=== PATIENT | male | born 1980 | race African-American/Black ===

== ENCOUNTER → 2021-09-06 | Outpatient (CLI) | payer MEDICAID ==
[2021-09-06 10:45] LABS: Basophils # (auto) 0.1 10 ^3/uL (0-0.2); Basophils % (auto) 1.2 % (0.0-2.0); Eosinophils # (auto) 0.3 10 ^3/uL (0-0.8); Eosinophils % (auto) 4.5 % (0.0-7.0); Hematocrit 41.5 % (41.0-53.0); Hemoglobin 14.3 g/dL (13.5-17.5); Lymphocytes # (auto) 1.7 10 ^3/uL (0.4-5.4); Lymphocytes % (auto) 27.2 % (10.0-50.0); Mean Corpuscular Hgb Conc. 34.6 g/dL (32.0-36.0); Mean Corpuscular Volume 92.7 fL (80.0-100.0); Monocytes # (auto) 0.4 10 ^3/uL (0-1.3); Monocytes % (auto) 6.7 % (0.0-12.0); Neutrophils # (auto) 3.7 10 ^3/uL (1.6-8.6); Neutrophils % (auto) 60.4 % (37.0-80.0); Red Blood Cells 4.48 10^6/uL (4.5-5.90); Red Cell Distribution Width 12.5 % (11.8-14.3); White Blood Cell 6.1 10^3/uL (4.4-10.8)
[2021-09-06 11:36] LABS: Albumin 3.8 g/dL (3.4-5.0); BUN/Creatinine Ratio 10.3; Calcium 9.7 mg/dL (8.5-10.1); Potassium 4.3 mmol/L (3.5-5.1)
[2021-09-06 11:48] LABS: Bilirubin, Total 0.5 mg/dL (0.2-1.0); Total Protein 7.2 g/dL (6.4-8.2)
[2021-09-06 12:00] LABS: Urine Blood TRACE /uL (Negative); Urine Specific Gravity 1.009 (1.001-1.035)
[2021-09-06 12:51] LABS: Micro Albumin < 5.00 mg/L (0-30.0)
== END | disposition home or self-care (01) ==
LOC: LAB 10:15
PROVIDERS: ATTEND Internal Medicine
DX: E11.9 Type 2 diabetes mellitus without complications (principal)
CPT/HCPCS: 36415; 80053; 80061; 81003; 82043; 83036; 84153; 85025

== ENCOUNTER 2023-09-05 20:14 | Emergency (ER) | payer MEDICAID ==
[~2023-09-05] VITALS: Ht 185.4 cm; Wt 76.0 kg
[2023-09-05 20:53] LABS: Basophils # (auto) 0 10 ^3/uL (0-0.2); Basophils % (auto) 0.5 % (0.0-2.0); Eosinophils # (auto) 0.2 10 ^3/uL (0-0.8); Hematocrit 39.8 % (41.0-53.0); Hemoglobin 13.3 g/dL (13.5-17.5); Lymphocytes # (auto) 1.4 10 ^3/uL (0.4-5.4); Mean Corpuscular Hemoglobin 31.2 pg (28.0-32.0); Mean Corpuscular Hgb Conc. 33.5 g/dL (32.0-36.0); Mean Corpuscular Volume 93.1 fL (80.0-100.0); Monocytes # (auto) 0.5 10 ^3/uL (0-1.3); Monocytes % (auto) 8.9 % (0.0-12.0); Neutrophils # (auto) 3.3 10 ^3/uL (1.6-8.6); Neutrophils % (auto) 60.6 % (37.0-80.0); Red Blood Cells 4.28 10^6/uL (4.5-5.90); Red Cell Distribution Width 12.3 % (11.8-14.3); White Blood Cell 5.5 10^3/uL (4.4-10.8)
[2023-09-05 21:09] LABS: Alanine Aminotransferase 21 U/L (7-40); Albumin 4.4 g/dL (3.2-4.8); Alkaline Phosphatase 112 U/L (46-116); Anion Gap 8 (5-15); Aspartate Aminotransferase 15 U/L (13-40); BUN/Creatinine Ratio 8.3 (10.0-20.0); Blood Urea Nitrogen 9 mg/dL (9-23); Calcium 9.8 mg/dL (8.5-10.1); Carbon Dioxide 25 mmol/L (20-30); Chloride 97 mmol/L (98-107); Potassium 4.2 mmol/L (3.5-5.1); Sodium 130 mmol/L (136-145)
[2023-09-05 21:10] LABS: Bilirubin, Total < 0.2 mg/dL (0.2-1.0); Total Protein 6.9 g/dL (5.7-8.2)
[2023-09-05 21:10] LABS: Urine Bacteria NONE SEEN /hpf (None Seen); Urine Blood Negative /uL (Negative); Urine Clarity Clear (Clear); Urine Color Colorless (Yellow); Urine Protein, UAD Negative (Negative); Urine Specific Gravity 1.036 (1.001-1.035); Urine Urobilinogen Normal (Negative); Urine WBC <1 /hpf (0 - 3); Urine pH 6.5 (5.0-8.0)
[2023-09-05 21:42] LABS: Glucose 417 mg/dL (74-106)
[2023-09-05] MEDS ORDERED: IBUP1TAB4 PO (23:38)
[2023-09-05 23:59] VITALS: BP 136/76; PULSE 65; RESP 18; TEMP 97.5; O2SAT 95
[2023-09-06] MEDS ORDERED: BLOO1KIT60 XX (00:03)
[2023-09-06 13:35] LABS: Lipase 81 U/L (12-53)
== END 2023-09-06 00:10 | disposition home or self-care (01) ==
LOC: ER 20:14
DX: K86.1 Other chronic pancreatitis (principal); R82.4 Acetonuria; E11.65 Type 2 diabetes mellitus with hyperglycemia; R07.89 Other chest pain
CPT/HCPCS: 36415; 71045; 74176; 80053; 81001; 82010; 82962; 83605; 83690; 84484; 85025; 93005

== ENCOUNTER 2024-06-16 19:05 | Emergency (ER) | payer MEDICAID ==
[~2024-06-16] VITALS: Ht 185.4 cm; Wt 83.5 kg
[~2024-06-16 19:05] MED LIST: AUG875T PO; BLOO1KIT60 XX; IBUP1TAB4 PO; NAPR-746 PO
[2024-06-16 19:40] VITALS: BP 117/84; PULSE 81; RESP 16; O2SAT 97
[2024-06-16] MEDS ORDERED: BACIOIN49 OP (20:07)
== END 2024-06-16 23:00 | disposition home or self-care (01) ==
LOC: ER 19:05
DX: H10.9 Unspecified conjunctivitis (principal); E11.9 Type 2 diabetes mellitus without complications; Z79.899 Other long term (current) drug therapy

== ENCOUNTER 2024-09-27 16:33 | Inpatient (IN) | payer MEDICAID ==
[~2024-09-27] VITALS: Ht 182.9 cm; Wt 84.1 kg
[~2024-09-27 16:33] MED LIST changes: +BACIOIN49 OP
--- NOTE | 2024-09-27 18:37 | ED.PDOC ---
History of Present Illness(SKN HPI Comments This is a 44-year-old male presents to the ED status post dog bite. Patient states he was bitten on 09/25 follow up at [facility] had sutures done to his right palm hand in his chest. States was discharged without antibiotics, today he comes in complaining of increasing pain and swelling to his right hand with redness no noted drainage. Denies numbness or weakness. Fever chills nausea or vomiting Chief Complaint: Animal Bite Time Seen by MD: 18:07 Primary Care Provider: NONI SANDS History of Present Illness: Nurses Notes, Medications, Allergies Allergies: Coded Allergies: NO KNOWN ALLERGIES (Unverified , 09/05/23) Home Meds Active Scripts Bacitracin-Polymyxin B (Ophth) (Bacitracin/Polymyxin B) Op Oin, 1 QUE OP QID for 7 Days, #10 ML Prov:NATALIA MURRAY 06/16/24 Naproxen (Naproxen) 500 Mg Tab, 500 MG PO BID, #30 TAB Prov:PADMINI MENA 12/26/23 Amoxicillin & Pot Clavulanate (AUGMENTIN TABLET) 875 Mg Tb, 875 MG PO BID, #20 TAB Prov:PADMINI MENA 24 Blood Glucose Monitoring Suppl (D-Care Glucometer Kit/Glu W/Device) 1 Kit Kit, KIT XX, #1 Prov:RAYSA RIOS 09/06/23 Ibuprofen Micronized (Ibuprofen) 400 Mg Tab, 400 MG PO Q6HP PRN, #30 TAB Prov:RAYSA RIOS 09/05/23 Information Source: Patient Mode of Arrival: Ambulatory Past Medical History PAST MEDICAL HISTORY: DM Surgical History: Denies all surgeries Family History Family History: Reviewed,noncontributory to illness Social History Smoker: Non-Smoker Alcohol: Denies ETOH Use Drugs: Denies Drug Use Lives In: Home Constitutional: denies: chills, diaphoresis, fatigue, fever, malaise, sweats, weakness, others EENTM: denies: blurred vision, double vision, ear bleeding, ear discharge, ear drainage, ear pain, ear ringing, eye pain, eye redness, hearing loss, mouth pain, mouth swelling, nasal discharge, nose bleeding, nose congestion, nose pain, photophobia, tearing, throat pain, throat swelling, voice changes, others Respiratory: denies: cough, hemoptysis, orthopnea, SOB at rest, shortness of breath, SOB with excertion, stridor, wheezing, others Cardiovascular: denies: chest pain, dizzy spells, diaphoresis, Dyspnea on exertion, edema, irregular heart beat, left arm pain, lightheadedness, palpitations, PND, syncope, others Gastrointestinal: denies: abdomen distended, abdominal pain, blood streaked bowels, constipated, diarrhea, dysphagia, difficulty swallowing, hematemesis, melena, nausea, poor appetite, poor fluid intake, rectal bleeding, rectal pain, vomiting, others Genitourinary: denies: burning, dysuria, flank pain, frequency, hematuria, incontinence, penile discharge, penile sore, pain, testicle pain, testicle swelling, urgency, others Neurological: denies: dizziness, fainting, headache, left sided numbness, left sided weakness, numbness, paresthesia, pre-existing deficit, right sided numbness, right sided weakness, seizure, speech problems, tingling, tremors, weakness, others Musculoskeletal: denies: back pain, gout, joint pain, joint swelling, muscle pain, muscle stiffness, neck pain, others Integumetry: reports: wounds (Sutures right palm hand); denies: bruises, change in color, change in hair/nails, dryness, laceration, lesions, lumps, rash, others Allergic/Immunocompromised: denies: Difficulty Healing, Frequent Infections, Hives, Itching, others Hematologic/Lymphatic: denies: anemia, blood clots, easy bleeding, easy bruising, swollen glands, others Endocrine: denies: excessive hunger, excessive sweating, excessive thirst, excessive urination, flushing, intolerance to cold, intolerance to heat, unexplained weight gain, unexplained weight loss, others Psychiatric: denies: anxiety, bipolar disorder, depression, hopeless, panic disorder, schizophrenia, sleepless, suicidal, others Physical Exam General Appearance: No Apparent Distress, Normal HEENT: Pharynx Normal Neck: Full Range of Motion, Non-Tender Respiratory: Lungs Clear, No Respiratory Distress, Normal Breath Sounds Cardiovascular: No Edema, No JVD, No Murmur, No Gallop, Normal Peripheral Pulses, Regular Rate/Rhythm Breast Exam: Deferred Gastrointestinal: No Organomegaly, Non Tender, No Pulsatile Mass, Normal Bowel Sounds, Soft Genitalia: Deferred Pelvic: Deferred Rectal: Deferred Extremities: Normal capillary refill, Normal inspection, Normal range of kemal on, Non-tender, No pedal edema Musculoskeletal : Apperance: Normal Neurologic: Alert, typing teacher II-XII nml as Tested, No Motor Deficits, Normal Affect, Normal Mood, No Sensory Deficits Cerebellar Function: Normal Reflexes: Normal Skin: Dry, Normal Color, Warm, Wounds (Sutures intact to right hand, aspect. Drainage. Moderate hand edema with noted cellulitis patient with decreasing function cause of the swelling sensory strength and motion intact positive cap refill. Dog bite on left nipple sutures intact no noted erythema, or edema, or drainage) Lymphatic: No Adenopathy Was a procedure done? Was a procedure done?: No Differential Diagnosis (INTG) Differential Diagnosis: Cellulitis X-Ray, Labs, Meds, VS Vital Signs Date Time Temp Pulse Resp B/P (MAP) Pulse Ox O2 Delivery O2 Flow Rate FiO2 09/27/24 21:07 82 16 98 Room Air* 0 21 09/27/24 21:00 82 16 120/72 (88) 99 09/27/24 20:55 82 16 120/72 09/27/24 18:12 92 16 99 Room Air 09/27/24 18:12 99.0 92 16 125/87 (100) 99 99.0 09/27/24 17:33 99.0 92 16 125/87 (100) 99 Lab Test 09/27/24 21:00 09/27/24 17:22 Range/Units POC Glucose 249 H 289 H 70-106 mg/dl Current Medications Medications (Trade) Dose Ordered Sig/Jeffery Route Start Time Stop Time Status Last Admin Ampicillin Sodium/ Sulbactam Sodium 3 gm/Sodium Chloride 100 ml @ 100 mls/hr Q6H IV 09/27/24 18:30 09/27/24 19:37 Morphine Sulfate 1 mg ONCE ONCE IV 09/27/24 21:00 09/27/24 21:01 DC 09/27/24 20:55 Sodium Chloride 1,000 ml @ 60 mls/hr [id number] IV 09/27/24 20:45 09/27/24 21:03 X-Ray, Labs, Meds, VS Comment Infected dog bite. Hep-Lock IV patient is started on 3 g of Unasyn. Right with moderate swelling and pain patient's dominant hand. Placed for inpatient admission for the hospitalist for pain management and IV antibiotics. Time of 1ST Reevaluation: 19:35 Reevaluation 1ST: Improved Patient Education/Counseling: Diagnosis, Treatment, Prognosis, Need For Follow Up Family Education/Counseling: No Family Present Departure 1 Departure Time of Disposition: 19:34 Impression: Primary Impression: Infected dog bite of hand Qualified Codes: S61.451A - Open bite of right hand, initial encounter; L08.9 - Local infection of the skin and subcutaneous tissue, unspecified; W54.0XXA - Bitten by dog, initial encounter Disposition: ADMITTED INPATIENT Condition: Stable Discharged With: Self Critical Care Note Critical Care Time?: No Stability Stability form required: SARAH Wilson Sep 27, 2024 18:37
[2024-09-27] MEDS: AMPICILLIN & SULBACTAM SODIUM 3 GM in SODIUM CHL 0.9% 100 ML IV SCH (19:37)
[2024-09-27] MEDS ORDERED: ACETAMINOPHEN 325 MG TAB PO PRN (20:45)
[2024-09-27] MEDS ORDERED: ONDANSETRON HCL 4 MG/2 ML VIAL IV PRN (20:45)
[2024-09-27] MEDS ORDERED: DEXTROSE (50%) 50ML SYRG IV PRN (20:45)
[2024-09-27] MEDS: MORPHINE SULFATE INJ 2 MG/ml SYRG IV ONE (20:55)
[2024-09-27] MEDS: SODIUM CHLORIDE 0.9% 1,000 ML IV SCH (21:03)
[2024-09-27 21:07] VITALS: PULSE 82; RESP 16; O2SAT 98
[2024-09-27] MEDS ORDERED: AMOXICILLIN/CLAVUL 875 MG TAB PO SCH ×2 (22:00)
[2024-09-27] MEDS ORDERED: NITROGLYCERIN 0.4 MG SL TAB SL PRN (22:30)
[2024-09-27] MEDS ORDERED: MORPHINE SULFATE INJ 2 MG/ml SYRG IV PRN (22:30)
--- NOTE | 2024-09-27 22:33 | DVHHP2 ---
History of Present Illness Reason for Visit: Infected dog bite of hand History of Present Illness The patient is a 44-year-old male with past medical history of diabetes mellitus who presented to [facility] ED presented to [facility] ED for evaluation of infected dog bite. Patient reports he was initial bitten by dog on 09/25/2024 and follow-up at [facility] had the sutures, and discharged without oral antibiotic regimen. Patient states today the insertion site becomes very painful, swelling, rating pain 9/10 numeric scale, getting worse that prompted this visit. Patient was seen and evaluated in the ED, laboratory data shows WBC 5.3, platelets 231, sodium 140, potassium 3.7, BUN 9, creatinine 0.92, glucose 289. Patient was started on IV antibiotic regimen Unasyn, please see medication orders section in the computer. On my assessment, patient denied chest pain, no headache, no dizziness, no diaphoresis, no pa lpitations, no shortness of breath, no nausea, no vomiting, no fever, no chills. Patient was admitted for further evaluation and medical management. Past Medical History Diabetes mellitus Past Surgical History Denies all surgeries Family History Reviewed, noncontributory to the management of this case. Past Social History The patient lives at home, denies smoking, alcohol or illicit drugs abuse. Review of Systems Constitutional: No: Fever, Chills, Sweats, Weakness, Malaise, Other Eyes: No: Pain, Vision change, Conjunctivae inflammation, Eyelid inflammation, Other, Redness ENT: No: Ear pain, Ear discharge, Nose pain, Nose discharge, Nose congestion, Mouth pain, Mouth swelling, Throat pain, Throat swelling, Other Respiratory: No: Cough, Dry, Shortness of breath, SOB with excertion, Wheezing, Hemoptysis, Pleuritic Pain, Sputum, Wheezing, Other Cardiovascular: No: Chest Pain, Palpitations, Orthopnea, Paroxysmal Noc. Dyspnea, Edema, Lt Headedness, Other Gastrointestinal: No: Nausea, Vomiting, Abdominal Pain, Diarrhea, Constipation, Melena, Hematochezia, Other Genitourinary: No Dysuria, No Frequency, No Incontinence, No Hematuria, No Retention, No Other Musculoskeletal: No: other, neck pain, shoulder pain, arm pain, back pain, hand pain, leg pain, foot pain Skin: Other (Wound, Sutures right palm hand.); No: Rash, Lesions, Jaundice, Bruising Neurological: No: Weakness, Numbness, Incoordination, Change in speech, Confusion, Seizures, Other Allergies: Coded Allergies: NO KNOWN ALLERGIES (Unverified , 09/05/23) Medications Current Medications Medications Dose Ordered Sig/Jeffery Route Start Time Stop Time Status Last Admin Dose Admin Ampicillin Sodium/ Sulbactam Sodium 3 gm/Sodium Chloride 100 ml @ 100 mls/hr Q6H IV 09/27/24 18:30 09/27/24 19:37 100 MLS/HR Diagnostic Test (Pha) 1 strip IQ4HR 09/28/24 00:00 Insulin Human Regular IQ4HR SC 09/28/24 00:00 Dextrose 50 ml UD PRN IV 09/27/24 20:45 Sodium Chloride 1,000 ml @ 60 mls/hr [id number] IV 09/27/24 20:45 09/27/24 21:03 60 MLS/HR Acetaminophen/ Hydrocodone Bitart 1 tab Q4HP PRN PO 09/27/24 20:45 Ondansetron HCl 4 mg Q4HP PRN IV 09/27/24 20:45 Docusate Sodium 100 mg BIDPRN PRN PO 09/27/24 20:45 Acetaminophen 650 mg Q6HP PRN PO 09/27/24 20:45 Morphine Sulfate 2 mg Q4HPRN PRN IV 09/27/24 20:45 Amoxicillin/ Clavulanate Potassium 875 mg Q12HR PO 09/27/24 22:00 UNV Nitroglycerin 0.4 mg Q5MINP PRN SL 09/27/24 22:30 UNV Morphine Sulfate 2 mg Q30M PRN IV 09/27/24 22:30 UNV Exam Vital Signs Vital Signs Date Time Temp Pulse Resp B/P (MAP) Pulse Ox O2 Delivery O2 Flow Rate FiO2 09/27/24 21:25 79 13 125/82 09/27/24 21:07 98 Room Air* 0 21 09/27/24 18:12 99.0 99.0 General Appearance: Alert, Oriented X3, Cooperative, No acute distress HEENT: Atraumatic, PERRLA, EOMI, Mucous membr. moist/pink Respiratory: Clear to auscultation, Normal air movement Cardiovascular: Regular rate, Normal S1, Normal S2, No murmurs Abdominal: Normal bowel sounds, Soft, No tenderness, No hepatospenomegaly, No masses Extremities: No clubbing, No cyanosis, No edema, Normal pulses, Other (Right hand tenderness/pain) Skin: No rashes, No breakdown, No significant lesion Neuro: Normal gait, Normal speech, Strength at 5/5 X4 ext, Normal tone, Sensation intact, Cranial nerves 3-12 NL, Reflexes 2+ Psych/Mental Status: Mental status NL, Mood NL Labs/Xrays Labs Test 09/27/24 21:00 Range/Units POC Glucose 249 H 70-106 mg/dl Assessment/Plan Assessment/Plan Infected dog bite of hand Open bite of right hand, initial encounter Bitten by dog, initial encounter Local infection of the skin and subcutaneous tissue, unspecified Diabetes mellitus with hyperglycemia Plan 1. Admit to med surge unit 2. Breathing treatment 3. Pain control management 4. IV antibiotic management 5. Management of fluids and electrolytes 6. Consultation for hospitalist 7. Diagnostic test chest x-ray 8. DVT prophylaxis-on SCDs 9. Repeat labs CBC, CMP in a.m. 10. Home medication reviewed and reconciled 11. Continue with current medical management 12. Treatment plan discussed with patient and RN. Patient verbalized understanding. Plan discussed with: Patient, Other (RN) My Orders Orders - BERTHA MOLINA DNP Procedure Category Date Status Time Consistent DIET 09/28/24 Transmitted Carb(Ccho)Diabetes Breakfast Glucose Blood PHA 09/28/24 In Process (Accu-Chek Comfort 00:00 Insulin R (Human) PHA 09/28/24 In Process (Insulin R) 00:00 Dextrose 50% Syringe PHA 09/27/24 In Process 20:45 Allergies DONOVAN 09/27/24 In Process 20:45 Code Status CODE 09/27/24 Transmitted 20:45 Sodium Chloride 0.9% PHA 09/27/24 In Process 20:45 Oxygen Per Hour RT 09/27/24 Transmitted 20:45 Hydrocodone-Acet PHA 09/27/24 In Process 5/325mg Tab (Polo 20:45 Ondansetron Hcl PHA 09/27/24 In Process (Zofran) 20:45 Docusate Sodium PHA 09/27/24 In Process Capsule (Colace 20:45 Complete Blood Count LAB 09/28/24 Verified 04:00 Comprehensive LAB 09/28/24 Verified Metabolic Panel 04:00 Cardiac DIET 09/28/24 Transmitted Diet-2gna,Lofat,Lochol Breakfast Condition: Serious [facility] 09/27/24 In Process 20:45 Acetaminophen Tablet [facility] 09/27/24 In Process (Tylenol Tablet) 20:45 Bedrest With Bathroom [facility] 09/27/24 In Process Privileg 20:45 Morphine Sulfate [facility] 09/27/24 In Process Injection 20:45 Sequential [facility] 09/27/24 In Process Compression Device Amoxicillin/Clavulanate [facility] 09/27/24 Pending Tablet (Augmenti 22:00 Admit ADMIT 09/27/24 Transmitted 22:[address] [facility] 09/27/24 Transmitted Sublingual (Ntrostat 22:30 Morphine Sulfate [facility] 09/27/24 Transmitted Injection 22:30 Notify Of Changes [facility] 09/27/24 Transmitted From Base 22:30 Bottled Beverage Inspector For [facility] 09/27/24 Transmitted 24 Hours 22:30 Emergency Dysrhythmia [facility] 09/27/24 Transmitted Protocol 22:30 Rhythm Strips Once [facility] 09/27/24 Transmitted Every Shift 22:30 Oxygen By Nasal 09/27/24 Transmitted Cannula 22:30 Problem List: (1) Infected dog bite of hand (2) Open bite of right hand, initial encounter (3) Diabetes mellitus with hyperglycemia (4) Bitten by dog, initial encounter (5) Local infection of the skin and subcutaneous tissue, unspecified Date of Service: Sep 27, 2024 Billing Provider: BERTHA MOLINA DNP Common Visit Codes: [id number] INP/OBS CARE (HIGH) BERTHA MOLINA DNP Sep 27, 2024 22:33
[2024-09-28] VITALS (8 sets, daily range): BP systolic 99–129; BP diastolic 54–81; PULSE 60–69; RESP 17–18; TEMP 97.4–98.2; O2SAT 97–100
[2024-09-28] MEDS: ACCU-CHEK COMFORT CURVE STRIP VI SCH ×2 (00:07→17:00)
[2024-09-28] MEDS: InsuLIN REG 1unit/0.01ml Soln (100units/ml) SC SCH ×2 (00:11→17:00)
[2024-09-28] MEDS: MORPHINE SULFATE INJ 2 MG/ml SYRG IV PRN (01:03)
[2024-09-28 06:18] LABS: Basophils # (auto) 0 10 ^3/uL (0-0.2); Basophils % (auto) 0.7 % (0.0-2.0); Eosinophils # (auto) 0.2 10 ^3/uL (0-0.8); Eosinophils % (auto) 3.8 % (0.0-7.0); Hematocrit 38.4 % (41.0-53.0); Lymphocytes # (auto) 1.5 10 ^3/uL (0.4-5.4); Lymphocytes % (auto) 26.4 % (10.0-50.0); Mean Corpuscular Hemoglobin 32.7 pg (28.0-32.0); Mean Corpuscular Volume 96.4 fL (80.0-100.0); Monocytes # (auto) 0.6 10 ^3/uL (0-1.3); Monocytes % (auto) 10.2 % (0.0-12.0); Neutrophils # (auto) 3.4 10 ^3/uL (1.6-8.6); Neutrophils % (auto) 58.9 % (37.0-80.0); Nucleated Red Blood Cells % 0.1 %; Platelet Count (auto) 231 10^3/uL (140-450); Red Blood Cells 3.98 10^6/uL (4.5-5.90); Red Cell Distribution Width 13.3 % (11.8-14.3); White Blood Cell 5.7 10^3/uL (4.4-10.8)
[2024-09-28 06:33] LABS: Alanine Aminotransferase 24 U/L (7-40); Alkaline Phosphatase 97 U/L (46-116); Anion Gap 6 (5-15); Aspartate Aminotransferase 19 U/L (13-40); BUN/Creatinine Ratio 9.8 (10.0-20.0); Bilirubin, Total 0.4 mg/dL (0.2-1.0); Calcium 9.8 mg/dL (8.7-10.4); Carbon Dioxide 28 mmol/L (20-31); Chloride 106 mmol/L (98-107); Potassium 3.7 mmol/L (3.5-5.1); Sodium 140 mmol/L (136-145); Total Protein 6.4 g/dL (5.7-8.2)
[2024-09-28 06:42] LABS: Blood Urea Nitrogen 9 mg/dL (9-23); Glucose 157 mg/dL (74-106)
[2024-09-28] MEDS: AMPICILLIN & SULBACTAM SODIUM 3 GM in SODIUM CHL 0.9% 100 ML IV SCH (10:03)
[2024-09-28] MEDS: HYDROcodone-ACET 5/325MG TAB PO PRN (14:55)
[2024-09-28] MEDS ORDERED: DEXTROSE (50%) 50ML SYRG IV PRN (17:00)
[2024-09-28] MEDS: INSULIN LANTUS (GLARGINE) 1 /0.01ml (100units/ml) SC SCH (21:28)
[2024-09-28] MEDS ORDERED: ACCU-CHEK COMFORT CURVE STRIP VI SCH (22:00)
--- NOTE | 2024-09-28 22:19 | DVHPN2 ---
Subjective The patient seems him at bedside. Still complain of right hand pain. Reviewed: Care Plan, H&P, Labs, Medications, Previous Orders, Radiology Changes from previous H/P or p: No Changes Eyes: No Pain, No Vision change, No Conjunctivae inflammation, No Eyelid inflammation, No Other, No Redness ENT: No Ear pain, No Ear discharge, No Nose pain, No Nose discharge, No Nose congestion, No Mouth pain, No Mouth swelling, No Throat pain, No Throat swelling, No Other Cardiovascular: No Chest Pain, No Palpitations, No Orthopnea, No Paroxysmal Noc. Dyspnea, No Edema, No Lt Headedness, No Other Respiratory: No Cough, No Dry, No Shortness of breath, No SOB with excertion, No Wheezing, No Hemoptysis, No Pleuritic Pain, No Sputum, No Other Gastrointestinal: No Nausea, No Vomiting, No Abdominal Pain, No Diarrhea, No Constipation, No Melena, No Hematochezia, No Other Genitourinary: No Dysuria, No Frequency, No Incontinence, No Hematuria, No Retention, No Other Musculoskeletal: No other, No neck pain, No shoulder pain, No arm pain, No back pain, No hand pain, No leg pain, No foot pain Skin: No Rash, No Lesions, No Jaundice, No Bruising; Other (Wound, Sutures right palm hand.) Objective Vitals Vital Signs Date Time Temp Pulse Resp B/P (MAP) Pulse Ox O2 Delivery O2 Flow Rate FiO2 09/28/24 17:00 97.4 69 18 106/67 (80) 98 97.4 09/28/24 08:00 Room Air* 0 21 Intake/Output Intake and Output 09/28/24 07:00 Intake Total 895 ml Balance 895 ml Intake Oral 125 ml IV Total 770 ml General Appearance: Alert, Oriented X3, Cooperative, No acute distress HEENT: Atraumatic, PERRLA, EOMI, Mucous membr. moist/pink Neck: Supple Lungs: Clear to auscultation, Normal air movement Cardiovascular: Regular rate, Normal S1, Normal S2, No murmurs, Gallops, Rubs Abdomen: Normal bowel sounds, Soft, No tenderness Neuro: Cranial nerves 3-12 NL Psych/Mental Status: Mental status NL Medications Current Medications Medications Dose Ordered Sig/Jeffery Route Start Time Stop Time Status Last Admin Dose Admin Sodium Chloride 1,000 ml @ 60 mls/hr [id number] IV 09/27/24 20:45 09/28/24 14:45 60 MLS/HR Acetaminophen/ Hydrocodone Bitart 1 tab Q4HP PRN PO 09/27/24 20:45 09/28/24 21:29 1 TAB Ondansetron HCl 4 mg Q4HP PRN IV 09/27/24 20:45 Docusate Sodium 100 mg BIDPRN PRN PO 09/27/24 20:45 Acetaminophen 650 mg Q6HP PRN PO 09/27/24 20:45 Morphine Sulfate 2 mg Q4HPRN PRN IV 09/27/24 20:45 09/28/24 10:25 2 MG Nitroglycerin 0.4 mg Q5MINP PRN SL 09/27/24 22:30 Morphine Sulfate 2 mg Q30M PRN IV 09/27/24 22:30 Ampicillin Sodium/ Sulbactam Sodium 3 gm/Sodium Chloride 100 ml @ 100 mls/hr Q6H IV 09/28/24 10:30 09/28/24 21:17 100 MLS/HR Diagnostic Test (Pha) 1 strip ACHS 09/28/24 17:00 09/28/24 20:00 1 STRIP Insulin Human Regular ACHS SC 09/28/24 17:00 09/28/24 21:26 8 UNITS Dextrose 50 ml UD PRN IV 09/28/24 17:00 Insulin Glargine 20 units QAM SC 09/29/24 07:00 Insulin Glargine 5 units HS SC 09/28/24 22:00 09/28/24 21:28 5 UNITS Laboratory Results Laboratory Tests 09/28/24 05:57 Chemistry Test 09/28/24 05:57 Albumin 4.0 g/dL (3.2-4.8) Calcium Level 9.8 mg/dL (8.7-10.4) Total Protein 6.4 g/dL (5.7-8.2) LFT Test 09/28/24 05:57 Alanine Aminotransferase (ALT) 24 U/L (7-40) Alkaline Phosphatase 97 U/L (46-116) Aspartate Amino Transferase (AST) 19 U/L (13-40) Total Bilirubin 0.4 mg/dL (0.2-1.0) Microbiology Microbiology Date/Time Source Procedure Growth Status 09/28/24 02:45 Nose MRSA Screen - Final Complete Labs and/or images reviewed: Labs reviewed by me Assessment/Plan Assessment/Plan Infected right hand dog bite Cellulitis of the right hand Diabetes type 2 uncontrolled with hyperglycemia Plan: Continuing current management. Continuing with IV antibiotic, Unasyn Continuing with sliding scale insulin. We will monitor blood glucose. Continuing with pain medication for pain control. This medical document was created using an electronic medical record system with [employer] direct computerized dictation system. Although this document has been carefully reviewed, there may still be some phonetic and typographical errors. These areas are purely typographical due to imperfections of the software programs, and do not reflect any compromise in the patient's medical care. Plan discussed with: Patient My Orders Orders - JOSR CHRISTIANSON MD Procedure Category Date Status Time Glucose Blood PHA 09/28/24 In Process (Accu-Chek Comfort 17:00 Insulin R (Human) PHA 09/28/24 In Process (Insulin R) 17:00 Dextrose 50% Syringe PHA 09/28/24 In Process 17:00 Insulin Lantus PHA 09/29/24 In Process (Glargine) (Lantus) 07:00 Insulin Lantus PHA 09/28/24 In Process (Glargine) (Lantus) 22:00 Date of Service: Sep 28, 2024 Billing Provider: JOSR CHRISTIANSON MD Common Visit Codes: [id number] INP/OBS CARE(HIGH) JOSR CHRISTIANSON MD Sep 28, 2024 22:19
[2024-09-29] VITALS (7 sets, daily range): BP systolic 104–124; BP diastolic 66–78; PULSE 58–66; RESP 17–19; TEMP 97.6–98.9; O2SAT 97–100
[2024-09-29] MEDS: INSULIN LANTUS (GLARGINE) 1 /0.01ml (100units/ml) SC SCH (06:37)
--- NOTE | 2024-09-29 11:35 | DVHPN2 ---
Subjective The patient seems him at bedside. Still complain of right hand pain. The patient also worry about the bite in his chest. Reviewed: Care Plan, H&P, Labs, Medications, Previous Orders, Radiology Changes from previous H/P or p: No Changes Eyes: No Pain, No Vision change, No Conjunctivae inflammation, No Eyelid inflammation, No Other, No Redness ENT: No Ear pain, No Ear discharge, No Nose pain, No Nose discharge, No Nose congestion, No Mouth pain, No Mouth swelling, No Throat pain, No Throat swelling, No Other Cardiovascular: No Chest Pain, No Palpitations, No Orthopnea, No Paroxysmal Noc. Dyspnea, No Edema, No Lt Headedness, No Other Respiratory: No Cough, No Dry, No Shortness of breath, No SOB with excertion, No Wheezing, No Hemoptysis, No Pleuritic Pain, No Sputum, No Other Gastrointestinal: No Nausea, No Vomiting, No Abdominal Pain, No Diarrhea, No Constipation, No Melena, No Hematochezia, No Other Genitourinary: No Dysuria, No Frequency, No Incontinence, No Hematuria, No Retention, No Other Musculoskeletal: No other, No neck pain, No shoulder pain, No arm pain, No back pain, No hand pain, No leg pain, No foot pain Skin: No Rash, No Lesions, No Jaundice, No Bruising; Other (Wound, Sutures right palm hand.) Objective Vitals Vital Signs Date Time Temp Pulse Resp B/P (MAP) Pulse Ox O2 Delivery O2 Flow Rate FiO2 09/29/24 10:57 62 18 109/71 09/29/24 09:00 97.6 98 97.6 09/29/24 08:18 Room Air* 0 21 Intake/Output Intake and Output 09/29/24 07:00 Intake Total 3440 ml Balance 3440 ml Intake Oral 2620 ml IV Total 820 ml # Voids 4 General Appearance: Alert, Oriented X3, Cooperative, No acute distress HEENT: Atraumatic, PERRLA, EOMI, Mucous membr. moist/pink Neck: Supple Lungs: Clear to auscultation, Normal air movement Cardiovascular: Regular rate, Normal S1, Normal S2, No murmurs, Gallops, Rubs Abdomen: Normal bowel sounds, Soft, No tenderness Neuro: Cranial nerves 3-12 NL Psych/Mental Status: Mental status NL Medications Current Medications Medications Dose Ordered Sig/Jeffery Route Start Time Stop Time Status Last Admin Dose Admin Sodium Chloride 1,000 ml @ 60 mls/hr [id number] IV 09/27/24 20:45 09/29/24 06:05 60 MLS/HR Acetaminophen/ Hydrocodone Bitart 1 tab Q4HP PRN PO 09/27/24 20:45 09/28/24 21:29 1 TAB Ondansetron HCl 4 mg Q4HP PRN IV 09/27/24 20:45 Docusate Sodium 100 mg BIDPRN PRN PO 09/27/24 20:45 Acetaminophen 650 mg Q6HP PRN PO 09/27/24 20:45 Morphine Sulfate 2 mg Q4HPRN PRN IV 09/27/24 20:45 09/29/24 10:57 2 MG Nitroglycerin 0.4 mg Q5MINP PRN SL 09/27/24 22:30 Morphine Sulfate 2 mg Q30M PRN IV 09/27/24 22:30 Ampicillin Sodium/ Sulbactam Sodium 3 gm/Sodium Chloride 100 ml @ 100 mls/hr Q6H IV 09/28/24 10:30 09/29/24 10:17 100 MLS/HR Diagnostic Test (Pha) 1 strip ACHS 09/28/24 17:00 09/29/24 06:36 1 STRIP Insulin Human Regular ACHS SC 09/28/24 17:00 09/28/24 21:26 8 UNITS Dextrose 50 ml UD PRN IV 09/28/24 17:00 Insulin Glargine 20 units QAM SC 09/29/24 07:00 09/29/24 06:37 20 UNITS Insulin Glargine 5 units HS SC 09/28/24 22:00 09/28/24 21:28 5 UNITS Laboratory Results Laboratory Tests 09/28/24 05:57 Microbiology Microbiology Date/Time Source Procedure Growth Status 09/28/24 02:45 Nose MRSA Screen - Final Complete Labs and/or images reviewed: Labs reviewed by me Assessment/Plan Assessment/Plan Infected right hand dog bite Cellulitis of the right hand Cellulitis of the left chest due to dog bite Diabetes type 2 uncontrolled with hyperglycemia Plan: Continuing current management. Continuing with IV antibiotic, Unasyn. I took a look at his chest dog bite area. Patient does have cellulitis but no pus and the redness seemed to improve. I explained to the patient the antibiotic we use for his hand is also treat for the wound infection of his chest. Continuing with sliding scale insulin. We will monitor blood glucose. Continuing with pain medication for pain control. This medical document was created using an electronic medical record system with [employer] direct computerized dictation system. Although this document has been carefully reviewed, there may still be some phonetic and typographical errors. These areas are purely typographical due to imperfections of the software programs, and do not reflect any compromise in the patient's medical care. Plan discussed with: Patient My Orders Orders - JOSR CHRISTIANSON MD Procedure Category Date Status Time Glucose Blood PHA 09/28/24 In Process (Accu-Chek Comfort 17:00 Insulin R (Human) PHA 09/28/24 In Process (Insulin R) 17:00 Dextrose 50% Syringe PHA 09/28/24 In Process 17:00 Insulin Lantus PHA 09/29/24 In Process (Glargine) (Lantus) 07:00 Insulin Lantus PHA 09/28/24 In Process (Glargine) (Lantus) 22:00 Date of Service: Sep 29, 2024 Billing Provider: JOSR CHRISTIANSON MD Common Visit Codes: [id number] INP/OBS CARE(HIGH) JOSR CHRISTIANSON MD Sep 29, 2024 11:34
[2024-09-29] MEDS: DOCUSATE SOD 100 MG CAP PO PRN (16:54)
[2024-09-30] VITALS (8 sets, daily range): BP systolic 111–141; BP diastolic 72–90; PULSE 54–66; RESP 16–19; TEMP 97.6–98.8; O2SAT 96–98
[2024-09-30 13:36] LABS: Basophils # (auto) 0 10 ^3/uL (0-0.2); Basophils % (auto) 0.8 % (0.0-2.0); Eosinophils # (auto) 0.3 10 ^3/uL (0-0.8); Eosinophils % (auto) 5.7 % (0.0-7.0); Hematocrit 39.1 % (41.0-53.0); Hemoglobin 13.3 g/dL (13.5-17.5); Lymphocytes # (auto) 1.2 10 ^3/uL (0.4-5.4); Mean Corpuscular Hemoglobin 32.5 pg (28.0-32.0); Mean Corpuscular Hgb Conc. 34.1 g/dL (32.0-36.0); Mean Corpuscular Volume 95.3 fL (80.0-100.0); Monocytes # (auto) 0.4 10 ^3/uL (0-1.3); Neutrophils # (auto) 2.8 10 ^3/uL (1.6-8.6); Neutrophils % (auto) 59.5 % (37.0-80.0); Platelet Count (auto) 262 10^3/uL (140-450); Red Cell Distribution Width 12.8 % (11.8-14.3); White Blood Cell 4.7 10^3/uL (4.4-10.8)
[2024-09-30 13:45] LABS: Chloride 102 mmol/L (98-107); Potassium 4.4 mmol/L (3.5-5.1); Sodium 136 mmol/L (136-145)
[2024-09-30 13:46] LABS: Anion Gap 6 (5-15); Calcium 9.8 mg/dL (8.7-10.4); Carbon Dioxide 28 mmol/L (20-31)
[2024-09-30 13:51] LABS: BUN/Creatinine Ratio 9.7 (10.0-20.0); Blood Urea Nitrogen 11 mg/dL (9-23)
[2024-09-30 13:55] LABS: Glucose 198 mg/dL (74-106)
[2024-09-30] MEDS: AMPICILLIN & SULBACTAM SODIUM 3 GM in SODIUM CHL 0.9% 100 ML IV SCH (22:09)
--- NOTE | 2024-09-30 23:21 | DVHPN2 ---
Subjective The patient seems him at bedside. Still complain of right hand pain and also pain in the chest area where the dog bite him too. Reviewed: Care Plan, H&P, Labs, Medications, Previous Orders, Radiology Changes from previous H/P or p: No Changes Eyes: No Pain, No Vision change, No Conjunctivae inflammation, No Eyelid inflammation, No Other, No Redness ENT: No Ear pain, No Ear discharge, No Nose pain, No Nose discharge, No Nose congestion, No Mouth pain, No Mouth swelling, No Throat pain, No Throat swelling, No Other Cardiovascular: No Chest Pain, No Palpitations, No Orthopnea, No Paroxysmal Noc. Dyspnea, No Edema, No Lt Headedness, No Other Respiratory: No Cough, No Dry, No Shortness of breath, No SOB with excertion, No Wheezing, No Hemoptysis, No Pleuritic Pain, No Sputum, No Other Gastrointestinal: No Nausea, No Vomiting, No Abdominal Pain, No Diarrhea, No Constipation, No Melena, No Hematochezia, No Other Genitourinary: No Dysuria, No Frequency, No Incontinence, No Hematuria, No Retention, No Other Musculoskeletal: No other, No neck pain, No shoulder pain, No arm pain, No back pain, No hand pain, No leg pain, No foot pain Skin: No Rash, No Lesions, No Jaundice, No Bruising; Other (Wound, Sutures right palm hand.) Objective Vitals Vital Signs Date Time Temp Pulse Resp B/P (MAP) Pulse Ox O2 Delivery O2 Flow Rate FiO2 09/30/24 21:00 98.1 66 18 127/76 (93) 96 98.1 09/30/24 20:00 Room Air* 0 21 Intake/Output Intake and Output 09/30/24 07:00 Intake Total 3480 ml Balance 3480 ml Intake Oral 2680 ml IV Total 800 ml # Voids 6 General Appearance: Alert, Oriented X3, Cooperative, No acute distress HEENT: Atraumatic, PERRLA, EOMI, Mucous membr. moist/pink Neck: Supple Lungs: Clear to auscultation, Normal air movement Cardiovascular: Regular rate, Normal S1, Normal S2, No murmurs, Gallops, Rubs Abdomen: Normal bowel sounds, Soft, No tenderness Neuro: Cranial nerves 3-12 NL Psych/Mental Status: Mental status NL Medications Current Medications Medications Dose Ordered Sig/Jeffery Route Start Time Stop Time Status Last Admin Dose Admin Sodium Chloride 1,000 ml @ 60 mls/hr [id number] IV 09/27/24 20:45 09/30/24 15:25 60 MLS/HR Acetaminophen/ Hydrocodone Bitart 1 tab Q4HP PRN PO 09/27/24 20:45 09/29/24 20:50 1 TAB Ondansetron HCl 4 mg Q4HP PRN IV 09/27/24 20:45 Docusate Sodium 100 mg BIDPRN PRN PO 09/27/24 20:45 09/29/24 16:54 100 MG Acetaminophen 650 mg Q6HP PRN PO 09/27/24 20:45 Morphine Sulfate 2 mg Q4HPRN PRN IV 09/27/24 20:45 09/30/24 20:37 2 MG Nitroglycerin 0.4 mg Q5MINP PRN SL 09/27/24 22:30 Morphine Sulfate 2 mg Q30M PRN IV 09/27/24 22:30 Diagnostic Test (Pha) 1 strip ACHS 09/28/24 17:00 09/30/24 22:07 1 STRIP Insulin Human Regular ACHS SC 09/28/24 17:00 09/29/24 12:01 6 UNITS Dextrose 50 ml UD PRN IV 09/28/24 17:00 Insulin Glargine 20 units QAM SC 09/29/24 07:00 09/30/24 05:38 20 UNITS Insulin Glargine 5 units HS SC 09/28/24 22:00 09/30/24 22:08 5 UNITS Ampicillin Sodium/ Sulbactam Sodium 3 gm/Sodium Chloride 100 ml @ 100 mls/hr Q6H IV 09/30/24 22:00 09/30/24 22:09 100 MLS/HR Laboratory Results Laboratory Tests 09/30/24 13:16 Chemistry Test 09/30/24 13:16 Calcium Level 9.8 mg/dL (8.7-10.4) Microbiology Microbiology Date/Time Source Procedure Growth Status 09/28/24 02:45 Nose MRSA Screen - Final Complete Labs and/or images reviewed: Labs reviewed by me Assessment/Plan Assessment/Plan Infected right hand dog bite Cellulitis of the right hand Cellulitis of the left chest due to dog bite Diabetes type 2 uncontrolled with hyperglycemia Plan: Continuing current management. Continuing with IV antibiotic, Unasyn. Continuing with sliding scale insulin. We will monitor blood glucose. Continuing with pain medication for pain control. Discharge planning. This medical document was created using an electronic medical record system with [employer] direct computerized dictation system. Although this document has been carefully reviewed, there may still be some phonetic and typographical errors. These areas are purely typographical due to imperfections of the software programs, and do not reflect any compromise in the patient's medical care. Plan discussed with: Patient Date of Service: Sep 30, 2024 Billing Provider: JOSR CHRISTIANSON MD Common Visit Codes: [id number] INP/OBS CARE(HIGH) JOSR CHRISTIANSON MD Sep 30, 2024 23:21
[2024-10-01 01:00] VITALS: BP 116/75; PULSE 61; RESP 16; TEMP 98; O2SAT 98
[2024-10-01 05:00] VITALS: BP 117/70; PULSE 98; RESP 17; TEMP 97.5; O2SAT 98
[2024-10-01 08:00] VITALS: PULSE 72; RESP 18; O2SAT 98
--- NOTE | 2024-10-01 08:27 | DVHDS2 ---
Discharge Summary Date of Admission Sep 27, 2024 at 22:30 Date of Discharge: Oct 01, 2024 Admitting Diagnosis Infected right hand dog bite Cellulitis of the right hand Cellulitis of the left chest due to dog bite Diabetes type 2 uncontrolled with hyperglycemia Labs/Diagnostic Data: Laboratory Results Test 10/01/24 06:11 09/30/24 13:16 09/28/24 05:57 POC Glucose 130 mg/dl (70-106) White Blood Count 4.7 10^3/uL (4.4-10.8) Red Blood Count 4.10 10^6/uL (4.5-5.90) Hemoglobin 13.3 g/dL (13.5-17.5) Hematocrit 39.1 % (41.0-53.0) Mean Corpuscular Volume 95.3 fL (80.0-100.0) Mean Corpuscular Hemoglobin 32.5 pg (28.0-32.0) Mean Corpuscular Hemoglobin Concent 34.1 g/dL (32.0-36.0) Red Cell Distribution Width 12.8 % (11.8-14.3) Platelet Count 262 10^3/uL (140-450) Mean Platelet Volume 8.7 fL (6.9-10.8) Neutrophils (%) (Auto) 59.5 % (37.0-80.0) Lymphocytes (%) (Auto) 25.0 % (10.0-50.0) Monocytes (%) (Auto) 9.0 % (0.0-12.0) Eosinophils (%) (Auto) 5.7 % (0.0-7.0) Basophils (%) (Auto) 0.8 % (0.0-2.0) Neutrophils # (Auto) 2.8 10 ^3/uL (1.6-8.6) Lymphocytes # (Auto) 1.2 10 ^3/uL (0.4-5.4) Monocytes # (Auto) 0.4 10 ^3/uL (0-1.3) Eosinophils # (Auto) 0.3 10 ^3/uL (0-0.8) Basophils # (Auto) 0 10 ^3/uL (0-0.2) Nucleated Red Blood Cells 0.0 % Sodium Level 136 mmol/L (136-145) Potassium Level 4.4 mmol/L (3.5-5.1) Chloride Level 102 mmol/L (98-107) Carbon Dioxide Level 28 mmol/L (20-31) Anion Gap 6 (5-15) Blood Urea Nitrogen 11 mg/dL (9-23) Creatinine 1.13 mg/dL (0.700-1.30) Glomerular Filtration Rate Calc 83 mL/min (>90) BUN/Creatinine Ratio 9.7 (10.0-20.0) Serum Glucose 198 mg/dL (74-106) Calcium Level 9.8 mg/dL (8.7-10.4) Total Bilirubin 0.4 mg/dL (0.2-1.0) Aspartate Amino Transferase (AST) 19 U/L (13-40) Alanine Aminotransferase (ALT) 24 U/L (7-40) Alkaline Phosphatase 97 U/L (46-116) Total Protein 6.4 g/dL (5.7-8.2) Albumin 4.0 g/dL (3.2-4.8) Other Laboratory Tests 09/30/24 13:16 Brief Hx & Hospital Course: This is a 43 years old male with past medical history diabetes come to emergency department for the evaluation of the infected dog bite. The patient's initial dog bite on 09/25/2024 and he went to [facility]. At that time he had suture on his left nipple and also on right hand due to laceration. Per patient he was discharged home without antibiotic so this time he decided to come to [facility] for further evaluation. He said his hand very painful , swelling and the pain is 9/10. The patient was admitted. The patient was treated with IV antibiotic Unasyn 3 g IV q.6 hours. Subsequently his hand edema improved. The pain is controlled with pain medication. No fever or chill. So today I am going to discharge the patient home. Advised the patient to follow up with primary care physician 1-2 weeks. Activity as tolerated. Diet per home diet. I am continuing him on Augmentin for 14 days. Apparently this is the 2nd time the patient get bite by a same dog. Advised the patient not to come near the dog. Per patient the dog customer sales advisor have give up the dog. Physical exam: HEENT: Normocephalic atraumatic pupils equal react to light and accommodation. Extraocular muscles intact, conjunctiva pink, oropharynx moist, no thrush, no exudate. Lymphatic: No lymphadenopathy Cardiovascular exam: S1, S2 was heard. No murmurs, rubs, gallops Lung: Clear on auscultation bilaterally, no wheeze, rale, rhonchi. GI: Abdominal soft, nondistended, nontenderness, positive bowel sounds. Extremity: No crepitus, cyanosis, edema. Pedal pulses present bilateral. Full range of motion. Skin: Normal turgor, no rash. There is multiple dog bite meyers on left chest and right hand Psych: Alert, oriented x3. Neurology: No focal deficits, cranial nerve II to XII grossly intact. This medical document was created using an electronic medical record system with [employer] direct computerized dictation system. Although this document has been carefully reviewed, there may still be some phonetic and typographical errors. These areas are purely typographical due to imperfections of the software programs, and do not reflect any compromise in the patient's medical care. Condition at Discharge: Stable Final Diagnosis/Problems List Infected right hand dog bite Cellulitis of the right hand Cellulitis of the left chest due to dog bite Diabetes type 2 uncontrolled with hyperglycemia Discharge Disposition: Home Discharge Statement: "Patient was advised to return to the ER or call 911 if any headaches, dizziness, shortness of breath, chest pain, abdominal pain, bleeding, fevers, or worsening of medical condition. Patient was counseled about treatment plan, medications, possible side effects, patientverbalized understanding. All questions were answered to the best of my ability. This discharge took greater then 30 minutes in planning, reviewing documentation, counseling the patient, and discussing with other team members." ASSESSMENT ASSESSMENT Assessment Date of Service: Oct 01, 2024 Billing Provider: JOSR CHRISTIANSON MD Common Visit Codes: 99083-LAL/OBS DISCH DAY >30min JOSR CHRISTIANSON MD Oct 01, 2024 08:27
[2024-10-01] MEDS ORDERED: AUG875T PO (08:29)
[2024-10-01 08:57] VITALS: BP 121/76; PULSE 47; RESP 20; TEMP 98.6; O2SAT 93
[2024-10-01 12:52] VITALS: BP 137/90; PULSE 62; RESP 18; TEMP 37; O2SAT 100
[2024-10-01 13:00] VITALS: BP 137/90; PULSE 62; RESP 18; TEMP 98.4; O2SAT 100
== END 2024-10-01 13:53 | disposition home or self-care (01) | DRG 383 ==
LOC: ER 16:33 → OVERFLOW 22:30 → WEST WING 09-28 02:20
PROVIDERS: ADMIT Nurse Practitioner Family; ATTEND Internal Medicine
DX: L03.113 Cellulitis of right upper limb (principal); L03.313 Cellulitis of chest wall; S61.451A Open bite of right hand, initial encounter; E11.65 Type 2 diabetes mellitus with hyperglycemia; W54.0XXA Bitten by dog, initial encounter; Y93.89 Activity, other specified; Y92.89 Other specified places as the place of occurrence of the external cause; Y99.8 Other external cause status
CPT/HCPCS: 36415; 80048; 80053; 82962; 85025; 87081; G0378; J1815